=== PATIENT | female | born 1990 | race Two or more races ===

== ENCOUNTER → 2017-08-08 16:00 | Outpatient (CLI) | payer MEDICAID, SELFPAY ==
--- NOTE | 2017-08-08 | IMM_PTH ---
PATIENT: CHELY LUNSFORD LOC: [facility] U#:[id number] AGE/SX: 34/F ROOM: RE08/08/[address]: Dr. Joce Mcclure MD : 1990 BED: DIS: SPEC #: [id number] RECD: 08/10/17 10:10 STATUS: ABDIAS REKartik #: [id number] MOLLY: 08/08/17 00:[address]: Joce Mcclure DEPT: IMMUNOHISTOCHEMISTRY RECD BY: Nargis Swanson Tissues: Thyroid gland, NOS Procedures: CK19 (add) GAL-3 (add) HBME (add) CD56 (initial) PHYSICIAN & INSTITUTION [place] [address] SPECIMEN INFORMATION: Tissue Source: Thyroid biopsy Clinical Info: Nontoxic single thyroid nodule Specimen Number: [id number] CPT code: 91451, 45340 x3 METHODOLOGY: Deparaffinized sections of prefer/formalin-fixed tissue or PAP/DQ stained slides are incubated with monoclonal/polyclonal antibodies/oligonucleotide probes. Localization is made via biotin free immunoperoxidase method. Appropriate controls are performed and reacted as expected. Results on target cell population are indicated in the following table: RESULTS: ANTIBODY / CLONE RESULT CD56 (123C3.D5) positive, focal CK19 (A53-B/A2.26) positive HBME1 (HBME-1) negative GAL3 (9C4) negative These tests were developed and their performance characteristics determined by [facility]. They may not have been cleared or approved by the [place]. Food and Drug Administration. The FDA has determined that such clearance or approval is not necessary. INTERPRETATION: Thyroid biopsy: Consistent with benign follicular nodule. SJ:giovanni 08/10/17
--- NOTE | 2017-08-08 16:00 | FLU_PTH ---
PATIENT: CHELY [facility]UNSFORD [id number] AGE/SX: 34/F ROOM: RE08/08/[address]: Dr. Joce Mcclure MD : 1990 BED: DIS: SPEC #: [id number] RECD: 08/08/17 18:41 STATUS: ABDIAS MINDA #: [id number] MOLLY: 08/08/17 16:[address]: Joce Mcclure DEPT: CYTOLOGY RECD BY: Delvin Foley Tissues: Thyroid gland, NOS Procedures: Pap Stain (control) Special Stain Group II Surgery Specimen Level IV Cell Block Cytospin Fluid HEADER OPERATION: Thyroid biopsy PRE-OP DIAGNOSIS: E04.1 nontoxic single thyroid nodule TISSUE SUBMITTED: Thyroid biopsy, needle aspiration (38687) DIAGNOSIS CYTOLOGY Thyroid, FNA (cytospin and cell block): Consistent with benign follicular nodule. See cytology study and comment. SJ:giovanni 5/2/18 COMMENT Immunohistochemistry ([id number]) supports the above diagnosis. Correlation with clinical, radiologic findings and appropriate follow up are necessary. CYTOLOGY STUDY Slides are reviewed. The specimen is adequate for evaluation. The specimen consists of clusters of benign follicular cells. CYTOLOGY GROSS Received is 40 ml of cloudy alber fluid labeled with the patient's name and and designated per the requisition as thyroid nodule. Submitted for cytology preparation including cell block. / RB:cc 08/09/17 TC:5 CPT: 59164, 81550
== END ==
PROVIDERS: Visit Provider Otolaryngology
DX: E04.1 Nontoxic single thyroid nodule (principal)
CPT/HCPCS: 88108; 88305; 88313; 88341; 88342

== ENCOUNTER → 2018-05-29 11:36 | Outpatient (CLI) | payer MEDICAID, SELFPAY ==
[2018-05-29 14:17] LABS: Free T3 2.3 pg/mL (2.18-3.98); T4 Total, Thyroxin 7.5 ug/dL (4.8-13.9); Thyroid Stim Hormone (TSH) 1.69 uIU/mL (0.358-3.74)
== END ==
PROVIDERS: Referring Provider Otolaryngology; Visit Provider Otolaryngology
DX: E04.1 Nontoxic single thyroid nodule (principal)
CPT/HCPCS: 36415; 84436; 84443; 84481